=== PATIENT | male | born 1970 | race Caucasian/White ===

== ENCOUNTER → 2017-10-03 | Outpatient (CLI) | payer SELFPAY ==
[~2017-10-03] MED LIST: COUMADIN3 MG PO; COUMADIN5 MG PO; Coumadin,Jantoven PO; Flonase BOTH NARES; HYDROCHLOROTH12.5 M3 PO; K-DUR20 MEQ PO; KLONOPIN0.5 M1 PO; KLONOPIN1 MG PO; LABETALOL HCL100 MG PO; LASIX40 MG PO; OXYCODONE HCL10 MG PO; PACERONE400 MG PO; SEPTRA 80-4001 EACH PO; TYLENOL REGULA325 MG PO; ZOCOR20 MG PO; ZOLOFT50 MG PO; [UNRECOGNIZED DRUG - OTHER]
== END | disposition home or self-care (01) ==
LOC: EKG 12:32
DX: Z95.828 Presence of other vascular implants and grafts (principal)
CPT/HCPCS: 93306